=== PATIENT | male | born 1970 | race Caucasian/White ===

== ENCOUNTER → 2022-12-31 08:12 | Outpatient (CLI) | payer BC, SELFPAY ==
[2022-12-31 08:18] LABS: Microscopic, Urine URINE MICROSCOPIC (MICROSCOPIC)
[2022-12-31 08:38] LABS: Basophils # 0.1 K/mm3 (0-0.2); Basophils % 1.6 % (0.1-2.0); Eosinophils # 0.1 K/mm3 (0.0-0.4); Hematocrit 45.3 % (42.0-52.0); Hemoglobin 14.6 g/dL (14.1-18.0); Lymphocytes # 1.7 K/mm3 (0.7-4.5); Lymphocytes % 23.6 % (10-50); Mean Corpuscular HGB Conc 32.2 g/dL (31.8-35.4); Mean Corpuscular Hemoglobin 30.2 pg (27.0-31.2); Mean Corpuscular Volume 93.8 fl (80-94); Mean Platelet Volume 8.1 fl (7.4-10.4); Monocytes # 0.4 K/mm3 (0.1-1.0); Monocytes % 5.3 % (1.7-9.3); Neutrophils # 4.8 K/mm3 (1.8-7.8); Neutrophils % 67.4 % (37.0-80.0); Platelet Count 325 K/mm3 (142-424); Red Blood Count 4.83 M/mm3 (4.60-6.20); Red Cell Distribution Width 13.2 % (11.5-17.5); White Blood Count 7.1 K/mm3 (4.8-10.8)
[2022-12-31 08:53] LABS: Appearance,Urine CLEAR (Clear); Bilirubin,Urine Negative (Negative); Blood, Urine Negative (Negative); Color,Urine YELLOW (Yellow); Glucose,Urine (UA) Negative (Negative); Ketones,Urine Negative (Negative); Leukocyte Esterase,Urine Negative (Negative); Nitrate,Urine Negative (Negative); PH,Urine 5.5 (5.0-8.5); Protein,Urine Negative (Negative); Specific Gravity, Urine >= 1.030 (1.005-1.030); Urobilinogen,Urine 0.2 EU/dl (0.2)
[2022-12-31 09:36] LABS: Alanine Aminotransferase 37 U/L (12-78); Albumin Level 4.1 g/dl (3.5-5.0); Albumin/Globulin Ratio 1.7 (1.1-1.8); Alkaline Phosphatase 75 U/L (38-126); Anion Gap 9.2 mEq/L (5-15); Aspartate Amino Transferase 50 U/L (17-59); Bacteria,Urine Trace /lpf; Bilirubin,Total 0.7 mg/dl (0.2-1.3); Blood Urea Nitrogen 13 mg/dl (9-20); Calcium 8.9 mg/dl (8.4-10.2); Carbon Dioxide 28 mmol/L (22.0-30.0); Chloride 107 mmol/L (98-107); Chol/HDL Ratio 4.7 (1-3.5); Cholesterol 238 mg/dl (140-200); Estimated Glomerular Filt Rate 102 ml/min (>60); GFR (African American) 123 ML/MIN (>60); Globulin 2.4 g/dL (1.3-3.2); Glucose 121 mg/dl (74-100); HDL Cholesterol 51 mg/dl (40-60); Potassium 4.2 mmoL/L (3.5-5.1); Sodium 140 mmol/L (136-145); Squamous Epithelial Cell,Urine Occasional #/hpf (0-5); Total Protein,Serum 6.5 g/dl (6.3-8.2); Triglycerides 305 mg/dl (30-150); VLDL Cholesterol 61 mg/dL (0-40); WBC,Urine Occasional #/hpf (0-3)
[2022-12-31 09:47] LABS: Direct LDL Cholesterol 155.29 mg/dL (100-129)
[2022-12-31 10:07] LABS: Prostate Specific Ag Screen 0.4 ng/ml (0.0-4.0); Thyroid Stimulating Hormone 2.43 uIU/mL (0.465-4.68)
[2022-12-31 10:23] LABS: Hemoglobin A1C 6.9 % (4.0-6.0)
== END ==
PROVIDERS: PCP Nurse Practitioner Family; Visit Provider Nurse Practitioner Family
DX: Z00.00 Encounter for general adult medical examination without abnormal findings (principal); Z13.220 Encounter for screening for lipoid disorders; Z13.1 Encounter for screening for diabetes mellitus; R53.83 Other fatigue; Z12.5 Encounter for screening for malignant neoplasm of prostate
CPT/HCPCS: 36415; 80053; 80061; 81001; 83036; 84443; 85025; G0103

== ENCOUNTER 2023-01-06 08:12 | Day surgery (SDC) | payer BC, SELFPAY ==
[2023-01-04 14:25] VITALS: BMI 39.5
[2023-01-06] VITALS (7 sets, daily range): BP systolic 134–158; BP diastolic 78–96; PULSE 62–75; RESP 16–19; TEMP 36.4–37; O2SAT 92–99
[2023-01-06 08:55] LABS: POC Glucose,Bedside 89 (70-110)
--- NOTE | 2023-01-06 09:13 | EXP.ANES.CKL ---
[facility] Disclaimer: The information contained in this section may have been updated after the patient was seen, as this information can be updated by other users. Medical History Closed right forearm fracture Wrist fracture, right Surgical History No significant past surgical history Family History Father Diabetes Mother Stroke Social History Smoking Status: Never smoker alcohol intake: current substance use type: denies use current occupational status: employed Travel in the last 8 weeks: None household members: none housing: house lives independently: Yes marital status: single education level: high school service: No correction: No caffeine: Yes do you feel safe at home: Yes victim of physical abuse: No victim of emotional abuse: No victim of sexual abuse: No would you like helpful sources: No [facility] Anesthesia Checklist Patient Identification Patient Identification: Arm Band and Verbal (Name & ) Structural Data Admitted From: Home Planned Operative Procedure/s: Colonoscopy Consent for Planned Operative Procedure(s) Verified: Yes NPO Status Verified Time NPO: 00:00 Airway Assessment C-Spine Mobility Assessed: Yes TMJ Mobility Assessed: Yes Dentition: Good Dentition Neurological Assessment Level of Consciousness: Awake Hx Seizures: No Numbness or tingling in extremities: No Anesthesia Plan Anesthesia Risk discussed: Yes Anesthesia Plan: Verified ASA Class: II Anesthesia Type: MAC
--- NOTE | 2023-01-06 10:07 | P.PCN_ITS ---
Procedure: Date: 01/06/23 Patient Date of :: 1970 Procedure Performed:: Total colonoscopy to terminal ileum with polypectomy using biopsy and snare Indications:: Patient is a 52-year-old male referred for screening colonoscopy and umbilical hernia. He does have a moderate umbilical hernia. Plan was made for proceeding with initial screening colonoscopy prior to consideration of umbilical hernia repair. He is undergoing CT scan to better evaluate the best method for umbilical hernia repair. Performing Provider:: Giovani Greene MD Referring Provider:: Lupe Jj Sedation:: MAC sedation Procedure:: Patient history was obtained and appropriate physical examination was performed. Patient's medications and allergies were reviewed. Informed consent was obtained after explaining the benefits, alternatives, and risks of the procedure including, but not limited to, bleeding, perforation, missed lesions, and adverse reaction to anesthesia medications. Patient was transported to endoscopy procedure room. Patient was connected to monitoring devices. Throughout the procedure the patient's blood pressure, pulse, and oxygen saturations were monitored continuously. Patient identification and planned procedure were verified by the staff. Patient was positioned in lateral decubitus position. Digital anorectal exam was performed. Variable stiffness Olympus colonoscope was inserted and adv anced under direct visualization to the cecum. Adequacy of the colonic preparation was noted. The colonoscope was advanced a short distance into the terminal ileum. The colonoscope was then slowly withdrawn while carefully examining the color, texture, anatomy, and integrity of the mucosoa circumferentially. Within the rectum retroflexion was performed. Colonoscope was then withdrawn. Findings:: Colonoscope was inserted to the cecum with minimal difficulty due to some redundancy of the sigmoid colon. Colonic preparation was fair and adequate visualization was achieved with irrigation and suctioning. Terminal ileum appeared normal. In the ascending colon there was a tiny polyp removed with biopsy forceps. In the descending colon there is a small polyp removed with snare with residual polyp removed with biopsy forceps. In the sigmoid colon there were a couple small diminutive polyps removed with snare. In the rectosigmoid region there was a hyperplastic appearing polyp removed with biopsy forceps. In the rectum there is a small adenomatous polyp removed with cold snare. Retroflexion revealed no evidence of any pathologic internal hemorrhoids. Colonoscope was withdrawn. Impression: Fair preparation Small polyps as noted above (total 5 polyps removed) Recommendations:: Repeat colonoscopy pending pathology. Given initial screening colonoscopy, suboptimal prep, and polyps likely 3 years Complications:: None immediate Estimated blood obtained (mL): 2
== END 2023-01-06 11:00 | disposition home or self-care (01) ==
PROVIDERS: PCP Nurse Practitioner Family; Visit Provider Surgery
PROC: 0DJD8ZZ Inspection of Lower Intestinal Tract, Via Natural or Artificial Opening Endoscopic (ICD-10-PCS; CPT 45385; principal; 2023-01-06 09:30)
DX: Z12.11 Encounter for screening for malignant neoplasm of colon (principal); D12.2 Benign neoplasm of ascending colon; D12.4 Benign neoplasm of descending colon; D12.5 Benign neoplasm of sigmoid colon; Z79.899 Other long term (current) drug therapy; K42.9 Umbilical hernia without obstruction or gangrene
CPT/HCPCS: 45385; 45380; 82962; 88305; J2704

== ENCOUNTER → 2023-01-10 09:19 | Outpatient (CLI) | payer BC, SELFPAY ==
--- NOTE | 2023-01-10 09:19 | CT_ITS ---
FINAL REPORT TECHNIQUE: Thin section axial images were obtained through the abdomen after intravenous contrast. Reconstruction images were obtained from the axial data. Exam was performed using dose reduction techniques. CLINICAL HISTORY: umbilical hernia evaluation , patient states he has had this hernia for several years oral contrast finished at 7:30 am FINDINGS: There is a 5 mm nodule in the right lower lobe on image number 9. There is a is subcentimeter hypodense lesion in the right hepatic lobe that is too small to characterize. There is diffuse fatty infiltration of the liver. There are multiple gallstones in the gallbladder. The spleen, adrenal glands, and pancreas are unremarkable. There is no hydronephrosis or solid renal mass. Abdominal GI tract is without acute abnormality. There is no abdominal lymphadenopathy or ascites. There is a fat containing umbilical hernia. Abdominal wall defect measures 5 cm. Hernia sac measures 8.6 cm. The pelvic solid organs are unremarkable. The pelvic portions of the GI tract, including the appendix, are without acute abnormality. There is no pelvic lymphadenopathy or ascites. No acute osseous abnormalities identified. IMPRESSION: Fat containing umbilical hernia. Fatty infiltration of the liver. Gallstones. Right lower lobe pulmonary nodule. Recommend follow-up based on Fleischner criteria after risk stratification. Reviewed, Interpreted and Dictated by Tameka Oakes MD Transcribed by Umesh Roe Authenticated and [facility]
== END ==
PROVIDERS: PCP Nurse Practitioner Family; Visit Provider Surgery
DX: K42.9 Umbilical hernia without obstruction or gangrene (principal)
CPT/HCPCS: 74177; Q9967

== ENCOUNTER → 2023-02-07 20:16 | Outpatient (CLI) | payer BC, SELFPAY | PROVIDERS: PCP Family Medicine; Visit Provider Family Medicine | DX: G47.30 Sleep apnea, unspecified (principal); R40.0 Somnolence; R06.83 Snoring; E66.9 Obesity, unspecified; Z68.41 Body mass index [BMI] 40.0-44.9, adult | CPT/HCPCS: 95810 ==

== ENCOUNTER → 2023-03-01 12:56 | Outpatient (CLI) | payer BC, SELFPAY ==
--- NOTE | 2023-03-01 12:56 | CT_ITS ---
FINAL REPORT TECHNIQUE: Axial images were obtained through the chest without contrast. CLINICAL HISTORY: 5mm RLL pulm nodule seen on abd CT nonsmoker COMPARISON: CT abdomen and pelvis 01/10/2023 FINDINGS: There is no significant mediastinal mass or adenopathy. There are calcified bilateral hilar lymph nodes. Mild coronary artery calcifications are noted. The heart size is normal. There is no pericardial or pleural effusion. The nodule in the periphery of the right lower lobe is again identified. It is stable and measures 5 mm, best seen on image 153 series 3. Limited images of the upper abdomen demonstrate calcified granulomas in the spleen. IMPRESSION: Stable 5 mm right lower lobe nodule. One year follow-up recommended. Reviewed, Interpreted and Dictated by Sandro Noriega MD Transcribed by Windy Gómez Authenticated and [facility]
== END ==
PROVIDERS: PCP Nurse Practitioner Family; Visit Provider Nurse Practitioner Family
DX: R91.1 Solitary pulmonary nodule (principal)
CPT/HCPCS: 71250

== ENCOUNTER → 2023-03-07 09:28 | Outpatient (CLI) | payer BC, SELFPAY ==
--- NOTE | 2023-03-07 09:29 | ECG_ITS ---
APPROVED REPORT Exam: Resting ECG HR:68 bpm ECG Measurements Heart Rate 68 AXES CO 150 P 45 QRSd 82 QRS 75 QT 367 T 35 QTc 384 Conclusion SINUS RHYTHM NONSPECIFIC T-WAVE ABNORMALITY BORDERLINE ECG UNCONFIRMED REPORT Electronically signed by : Al Echevarria MD 03/07/2023 20:41:02
[2023-03-07 09:49] LABS: Microscopic, Urine URINE MICROSCOPIC (MICROSCOPIC)
[2023-03-07 10:22] LABS: Basophils # 0.1 K/mm3 (0-0.2); Basophils % 1.1 % (0.1-2.0); Eosinophils # 0.1 K/mm3 (0.0-0.4); Eosinophils % 1.1 % (0.1-12.0); Hematocrit 44.9 % (42.0-52.0); Hemoglobin 14.6 g/dL (14.1-18.0); Lymphocytes # 1.4 K/mm3 (0.7-4.5); Lymphocytes % 27.2 % (10-50); Mean Corpuscular HGB Conc 32.6 g/dL (31.8-35.4); Mean Corpuscular Hemoglobin 30.8 pg (27.0-31.2); Mean Corpuscular Volume 94.4 fl (80-94); Mean Platelet Volume 8.4 fl (7.4-10.4); Monocytes # 0.4 K/mm3 (0.1-1.0); Monocytes % 6.8 % (1.7-9.3); Neutrophils # 3.3 K/mm3 (1.8-7.8); Neutrophils % 63.8 % (37.0-80.0); Platelet Count 291 K/mm3 (142-424); Red Blood Count 4.75 M/mm3 (4.60-6.20); Red Cell Distribution Width 13.3 % (11.5-17.5); White Blood Count 5.1 K/mm3 (4.8-10.8)
[2023-03-07 10:51] LABS: Chloride 106 mmol/L (98-107); Potassium 4.3 mmoL/L (3.5-5.1); Sodium 140 mmol/L (136-145)
[2023-03-07 10:54] LABS: Blood Urea Nitrogen 16 mg/dl (9-20); Estimated Glomerular Filt Rate 88 ml/min (>60); GFR (African American) 107 ML/MIN (>60)
[2023-03-07 10:55] LABS: Anion Gap 11.3 mEq/L (5-15); Calcium 9.1 mg/dl (8.4-10.2); Carbon Dioxide 27 mmol/L (22.0-30.0); Glucose 96 mg/dl (74-100)
[2023-03-07 11:18] LABS: Appearance,Urine CLEAR (Clear); Bilirubin,Urine Negative (Negative); Blood, Urine TRACE-I (Negative); Color,Urine YELLOW (Yellow); Glucose,Urine (UA) Negative (Negative); Ketones,Urine Negative (Negative); Leukocyte Esterase,Urine Negative (Negative); Nitrate,Urine Negative (Negative); PH,Urine 5.5 (5.0-8.5); Protein,Urine Negative (Negative); Specific Gravity, Urine >= 1.030 (1.005-1.030); Urobilinogen,Urine 0.2 EU/dl (0.2)
[2023-03-07 11:23] LABS: Bacteria,Urine Trace /lpf; RBC,Urine Occasional #/hpf (0-3); Squamous Epithelial Cell,Urine Occasional #/hpf (0-5)
== END ==
PROVIDERS: PCP Nurse Practitioner Family; Visit Provider Surgery
DX: Z01.818 Encounter for other preprocedural examination (principal); K42.9 Umbilical hernia without obstruction or gangrene
CPT/HCPCS: 36415; 80048; 81001; 85025; 93005

== ENCOUNTER 2023-03-13 07:16 | Day surgery (SDC) | payer BC, SELFPAY ==
[2023-03-10 14:17] VITALS: BMI 47.1
[2023-03-13] VITALS (12 sets, daily range): BP systolic 118–159; BP diastolic 69–93; PULSE 69–89; RESP 12–18; TEMP 36.1–43; O2SAT 93–97
--- NOTE | 2023-03-13 08:24 | EXP.ANES.CKL ---
[facility] Disclaimer: The information contained in this section may have been updated after the patient was seen, as this information can be updated by other users. Medical History Closed right forearm fracture Encounter for screening for diabetes mellitus Establishing care with new doctor, encounter for Screening cholesterol level Wrist fracture, right Surgical History History of colonoscopy 01/06/23 Dr. Greene Family History Father Diabetes Mother Stroke Social History Smoking Status: Never smoker alcohol intake: current substance use type: denies use current occupational status: employed Travel in the last 8 weeks: None household members: none housing: house lives independently: Yes marital status: single education level: high school service: No [place] [facility]: No caffeine: Yes do you feel safe at home: Yes victim of physical abuse: No victim of emotional abuse: No victim of sexual abuse: No would you like helpful sources: No [facility] Anesthesia Checklist Patient Identification Patient Identification: Arm Band Structural Data Admitted From: Home Planned Operative Procedure/s: Laparoscopic Umbilical Hernia Repair Consent for Planned Operative Procedure(s) Verified: Yes Verified Documents: Surgical Consent and History and Physical NPO Status Verified Time NPO: 00:00 Additional verifications Anesthesia Reactions: No Hx Blood Transfusions: No Blood Transfusion Reaction: No Airway Assessment C-Spine Mobility Assessed: Yes TMJ Mobility Assessed: Yes Dentition: Good Dentition Neurological Assessment Level of Consciousness: Awake and Alert Anesthesia Plan Anesthesia Risk discussed: Yes Anesthesia Plan: Verified ASA Class: III Anesthesia Type: General
--- NOTE | 2023-03-13 11:13 | EXP.OP.NOTE ---
Date of procedure: 03/13/23 Pre-op Diagnosis:: Large complex umbilical hernia Post-op Diagnosis:: Same Procedure performed:: Laparoscopic ventral/umbilical hernia repair with placement of 11.[address] mesh. Surgeon:: Giovani Greene MD LUMBER PULLER:: Other Anesthesia: GETA Estimated blood loss (mL): 15 Clinical Note:: Patient presents for umbilical hernia repair.? I had seen him initially in the office on 12/29/2022 to evaluate an umbilical hernia as well as to plan for initial screening colonoscopy.? He has had a hernia present for several years somewhat above his umbilical area.? It has increased in size.? I had performed colonoscopy and he had a couple of tubular adenomas, submucosal leiomyoma, sessile serrated polyp in the rectum.? Repeat colonoscopy is recommended for [address] scan revealed fat-containing umbilical hernia, fatty infiltration of liver, gallstones.? Review of the images reveals hernia defect measuring approximately 4.55 cm.? Long discussion was held with the patient regarding the implications of surgery and nature, postoperative expectations, risks and benefits of the surgery. Patient did elect to proceed with hernia repair. Given the nature of the hernia I felt that likely laparoscopic repair would be the best option. I did explain to him that if this was repaired totally laparoscopically that this would likely be the best repair with less chance of recurrence but he may have still somewhat atypical appearing umbilical area. Operative findings:: He had a large complex hernia at his umbilical area. Defect measured 4 to 5 cm. Operative note:: Patient was taken to the operating room. He was given preoperative intravenous antibiotics. In the operating room he was placed in a supine position. General anesthesia was induced via endotracheal tube. [place] catheter was placed. Abdomen was prepped and draped in the standard surgical fashion. Through a 5 mm left subcostal incision optical trocar was inserted under laparoscopic visualization. CO2 pneumoperitoneum was achieved to 15 mmHg. Laparoscopic surveillance was carried out. He had herniated omentum in his mid abdomen. Additional trocars were placed with a 5 mm trocar in the left lower abdomen and a 12 mm trocar in the right subcostal area. Ultimately an additional 5 mm trocar was inserted in the right lower abdomen. With gentle traction the majority of the significant amount of herniated omentum was able to be reduced. There were some adhesions of the herniated omentum to the peritoneum of the hernia sac which were incised with electrocautery ultimately reducing the herniated omentum. There was a large amount of preperitoneal fatty tissues within the hernia and surrounding tissues and decision was made to excise the hernia sac and peritoneum surrounding the hernia to allow for placement of mesh. This was performed meticulously using JOSE ultrasonic harmonic valerie dissecting free the peritoneum of the hernia sac and preperitoneal fat surrounding the hernia to relatively normal fascia. Overall size of the defect measured approximately 4 to 5 cm. The hernia sac and preperitoneal fat was placed with and an endoscopic retrieval device and removed through the right upper quadrant trocar site which required some extension of the fascial incision for delivery. Attempt was made to tack the umbilical dermis inferiorly to the fascia using the OPTi fix absorbable fixation system. This was unsuccessful however. 11.[address] mesh was brought onto the field. It was inserted through the right upper quadrant trocar site. It was oriented intracorporeally. Within the umbilicus a tiny incision was made and the suture passer device was inserted. Insufflation tubing for the balloon positioning system was then brought through the umbilical incision and the balloon was inflated. Mesh was oriented intracorporeally with good overlap of the fascial edges. Mesh was
--- NOTE | 2023-03-13 11:26 | P.PNANES_ITS ---
[facility] Anesthesia Record Part I Anesthesia Record I Intake, IV Amount: 1,100 Estimated blood loss (mL): 15 Urine output (mL): 200 Blood Pressure: 128/76 SaO2: 94 Pulse Rate: 80 Respiratory Rate: 18 Temperature: 98.4 F Patient is:: Drowsy and Stable Stable to PACU at:: 11:18
[2023-03-13 12:17] LABS: POC Glucose,Bedside 101 (70-110)
[2023-03-13 14:04] LABS: Microscopic,Cath URINE MICROSCOPIC (MICROSCOPIC)
[2023-03-13 14:22] LABS: Appearance,Urine/Cath CLEAR (Clear); Bilirubin,Cath Negative (Negative); Blood, Urine/Cath Negative (Negative); Color,Urine/Cath YELLOW (Yellow); Glucose,Urine/Cath (UA) Negative (Negative); Ketones,Urine/Cath Negative (Negative); Leukocyte Esterase,Cath Negative (Negative); Nitrate,Cath Negative (Negative); PH,Urine/Cath 5.5 (5.0-8.5); Protein,Urine/Cath TRACE (Negative); Specific Gravity, Urine/Cath >= 1.030 (1.005-1.030); Urobilinogen,Cath 0.2 EU/dl (0.2)
[2023-03-13 15:17] LABS: CA Oxalate Crystals,Ur/Cath 2+ /lpf; RBC,Urine/Cath Occasional # /hpf (0-3)
[2023-03-14 07:13] VITALS: BP 149/69; PULSE 79; TEMP 36.2
--- NOTE | 2023-03-14 07:13 | EXP.ANES.II ---
[facility] Anesthesia Record Part II Anesthesia Record Part II Discharge Time: 11:58 Destination: Surgical Day Care (OP Surgery) PACU nurse assessment reviewed?: Yes Patient Condition:: Good Anesthesia Complications:: None Swallowing reflex intact?: Yes Cyanosis?: No Blood Pressure: 149/69 Pulse Rate: 79 Temperature: 97.2 F Mental Status: Alert & Oriented Pain level:: 0 Nausea and/or vomitting:: None Intake, IV Amount: 0
== END 2023-03-13 12:35 | disposition home or self-care (01) ==
PROVIDERS: PCP Nurse Practitioner Family; Visit Provider Surgery
PROC: 0WQF4ZZ Repair Abdominal Wall, Percutaneous Endoscopic Approach (ICD-10-PCS; CPT 49593; principal; 2023-03-13 08:45)
DX: K42.9 Umbilical hernia without obstruction or gangrene (principal); E11.9 Type 2 diabetes mellitus without complications
CPT/HCPCS: 49593; 81001; 82962; 96374; C1781; J2405

== ENCOUNTER → 2023-05-05 07:39 | Outpatient (CLI) | payer BC, SELFPAY ==
[2023-05-05 09:46] LABS: Chol/HDL Ratio 5.8 (1-3.5); Cholesterol 227 mg/dl (140-200); HDL Cholesterol 39 mg/dl (40-60); Triglycerides 218 mg/dl (30-150); VLDL Cholesterol 44 mg/dL (0-40)
[2023-05-05 09:57] LABS: Direct LDL Cholesterol 140.93 mg/dL (100-129)
[2023-05-05 10:07] LABS: Hemoglobin A1C 5.5 % (4.0-6.0)
== END ==
PROVIDERS: PCP Nurse Practitioner Family; Visit Provider Nurse Practitioner Family
DX: E78.5 Hyperlipidemia, unspecified (principal); E11.9 Type 2 diabetes mellitus without complications
CPT/HCPCS: 36415; 80061; 83036

== ENCOUNTER 2023-06-10 12:45 | Emergency (ER) | payer BC, SELFPAY ==
[2023-06-10 12:46] VITALS: BP 110/71; PULSE 67; RESP 18; TEMP 36.7; O2SAT 95; BMI 38.0
--- NOTE | 2023-06-10 13:05 | EXP.UTC ---
Discharge Plan Disposition Patient Disposition: Home, Self-Care Condition: Good Prescriptions Prescriptions: New mupirocin 2 % ointment 1 applic topical TID 7 Days Qty: 15 0RF amoxicillin-pot clavulanate 875-125 mg Tablet 1 tab PO Q12H Qty: 20 0RF No Action multivitamin [Daily Multi-Vitamin] Tablet 1 tab PO DAILY ferrous sulfate [FeroSul] 325 mg (65 mg iron) tablet 325 mg PO DAILY pseudoephedrine HCl [Nasal Decongestant (pseudoeph)] 30 mg tablet 30 mg PO DAILY PRN Rx Instructions: DNExceed 4 doses/24h Fish Oil 100-160-1,000 mg capsule 1 cap PO DAILY atorvastatin 40 mg tablet 40 mg PO HS Qty: 90 1RF Referrals Follow up/Referrals: Lupe Jj APRN [Primary Care Provider] - See instructions Activity Restrictions/Add. Instructions Additional Instructions/Restrictions: Keep the wounds clean and dry. Follow up with your regular doctor. Take the antibiotics as directed and apply the topical antibiotics as directed. Make sure you stay in contact with the health department regarding the health of the cat. Watch the puncture wounds for signs of worsening infection, such as worsening redness, drainage, swelling, etc. 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 He has several tooth puncture wound there now. His tetanus immunization is not up to date. Related Data Home Medications Medication Instructions Recorded Confirmed ferrous sulfate 325 mg (65 mg 325 mg PO DAILY Supplement 12/22/22 05/04/23 iron) tablet (FeroSul) multivitamin (Daily Multi-Vitamin 1 tab PO DAILY Supplement 12/22/22 05/04/23 tablet) omega 0-mdm-ssz-fish oil 100 1 cap PO DAILY Supplement 03/07/23 05/04/23 mg-160 mg-1,000 mg capsule (Fish Oil) pseudoephedrine HCl 30 mg tablet 30 mg PO DAILY PRN 05/04/23 05/04/23 (Nasal Decongestant (pseudoephedrine)) Previous Rx's Medication Instructions Recorded atorvastatin 40 mg tablet 40 mg PO HS #90 tabs 05/05/23 amoxicillin 875 mg-potassium 1 tab PO Q12H #20 tabs 06/10/23 clavulanate 125 mg tablet mupirocin 2 % topical ointment 1 applic topical TID 7 days #15 06/10/23 grams Allergies Allergy/AdvReac Type Severity Reaction Status Date / Time Sulfa (Sulfonamide Allergy Intermediate Verified 05/04/23 09:57 Antibiotics) mold Allergy Mild Uncoded 05/04/23 09:57 PFSH PFS Disclaimer: The information contained in this section may have been updated after the patient was seen, as this information can be updated by other users. Medical History Closed right forearm fracture Encounter for screening for diabetes mellitus Establishing care with new doctor, encounter for History of umbilical hernia Screening cholesterol level Wrist fracture, right Surgical History History of colonoscopy History of umbilical hernia repair Family History Father Diabetes Mother Stroke Social History Smoking Status: Never smoker alcohol intake: current substance use type: denies use current occupational status: employed Travel in the last 8 weeks: None household members: none housing: house lives independently: Yes marital status: single education level: high school
[2023-06-10 13:41] VITALS: BP 110/71; PULSE 67; RESP 18; TEMP 36.7; O2SAT 95
== END 2023-06-10 13:42 | disposition home or self-care (01) ==
PROVIDERS: Emergency Provider Nurse Practitioner Family; PCP Nurse Practitioner Family
DX: S61.451A Open bite of right hand, initial encounter (principal); W55.01XA Bitten by cat, initial encounter; Z23 Encounter for immunization
CPT/HCPCS: 90471; 90715; 96372; 99204; 99212; G0463

== ENCOUNTER → 2023-08-03 16:27 | Outpatient (CLI) | payer BC, SELFPAY ==
[2023-08-03 16:04] LABS: Cholesterol 141 mg/dl (140-200); Triglycerides 123 mg/dl (30-150); VLDL Cholesterol 25 mg/dL (0-40)
[2023-08-03 16:05] LABS: Chol/HDL Ratio 4.1 (1-3.5); HDL Cholesterol 34 mg/dl (40-60)
[2023-08-03 16:15] LABS: Direct LDL Cholesterol 78.38 mg/dL (100-129)
== END ==
PROVIDERS: PCP Nurse Practitioner Family; Visit Provider Nurse Practitioner Family
DX: E11.9 Type 2 diabetes mellitus without complications (principal); E78.5 Hyperlipidemia, unspecified
CPT/HCPCS: 80061; 83036

== ENCOUNTER 2024-02-01 12:44 | Outpatient (CLI) | payer BC, SELFPAY ==
[2024-02-01 12:45] LABS: Microscopic, Urine URINE MICROSCOPIC (MICROSCOPIC)
[2024-02-01 13:04] LABS: Basophils # 0.1 K/mm3 (0-0.2); Basophils % 0.8 % (0.1-2.0); Eosinophils # 0.1 K/mm3 (0.0-0.4); Eosinophils % 1.4 % (0.1-12.0); Hematocrit 46.3 % (42.0-52.0); Hemoglobin 14.8 g/dL (14.1-18.0); Lymphocytes # 1.7 K/mm3 (0.7-4.5); Lymphocytes % 25.8 % (10-50); Mean Corpuscular Hemoglobin 31.3 pg (27.0-31.2); Mean Corpuscular Volume 97.8 fl (80-94); Monocytes # 0.6 K/mm3 (0.1-1.0); Monocytes % 8.1 % (1.7-9.3); Neutrophils # 4.3 K/mm3 (1.8-7.8); Neutrophils % 63.9 % (37.0-80.0); Platelet Count 252 K/mm3 (142-424); Red Blood Count 4.73 M/mm3 (4.60-6.20); Red Cell Distribution Width 12.9 % (11.5-17.5); White Blood Count 6.7 K/mm3 (4.8-10.8)
[2024-02-01 13:19] LABS: Alanine Aminotransferase 25 U/L (12-78); Albumin Level 4.5 g/dl (3.5-5.0); Alkaline Phosphatase 104 U/L (38-126); Anion Gap 15.2 mEq/L (5-15); Aspartate Amino Transferase 26 U/L (17-59); Blood Urea Nitrogen 15 mg/dl (9-20); Calcium 9.3 mg/dl (8.4-10.2); Carbon Dioxide 27 mmol/L (22.0-30.0); Chloride 105 mmol/L (98-107); Chol/HDL Ratio 4.6 (1-3.5); Cholesterol 187 mg/dl (140-200); Estimated Glomerular Filt Rate 101 ml/min (>60); GFR (African American) 122 ML/MIN (>60); Globulin 2.2 g/dL (1.3-3.2); Glucose 91 mg/dl (74-100); HDL Cholesterol 41 mg/dl (40-60); Potassium 5.2 mmoL/L (3.5-5.1); Sodium 142 mmol/L (136-145); Total Protein,Serum 6.7 g/dl (6.3-8.2); Triglycerides 170 mg/dl (30-150); VLDL Cholesterol 34 mg/dL (0-40)
[2024-02-01 13:27] LABS: Hemoglobin A1C 6.2 % (4.0-6.0)
[2024-02-01 13:32] LABS: Direct LDL Cholesterol 106.23 mg/dL (100-129)
[2024-02-01 13:36] LABS: Free T4 (Free Thyroxine) 0.78 ng/dl (0.78-2.19)
[2024-02-01 13:38] LABS: 25-OH Vitamin D, Total 38.5 ng/mL (30-100)
[2024-02-01 13:43] LABS: Creatinine,Urine Random 136 mg/dL (Not Estab.); Microalbumin < 6.000 mg/L (0-16.7)
[2024-02-01 13:45] LABS: Appearance,Urine CLEAR (Clear); Bilirubin,Urine Negative (Negative); Blood, Urine Negative (Negative); Color,Urine YELLOW (Yellow); Glucose,Urine (UA) Negative (Negative); Ketones,Urine Negative (Negative); Leukocyte Esterase,Urine Negative (Negative); Nitrate,Urine Negative (Negative); Protein,Urine Negative (Negative); Specific Gravity, Urine 1.025 (1.005-1.030); Urobilinogen,Urine 0.2 EU/dl (0.2)
[2024-02-01 13:47] LABS: Bacteria,Urine Trace /lpf; Mucus,Urine Trace /lpf; WBC,Urine Occasional #/hpf (0-3)
[2024-02-01 13:51] LABS: Prostate Specific Ag Screen 0.7 ng/ml (0.0-4.0)
[2024-02-01 14:10] LABS: Vitamin B12 688 pg/mL (239-931)
== END 2024-02-01 23:59 ==
LOC: LAB.DROPOF 12:44
PROVIDERS: PCP Nurse Practitioner Family; Visit Provider Nurse Practitioner Family
DX: R53.83 Other fatigue (principal); E11.9 Type 2 diabetes mellitus without complications; E78.5 Hyperlipidemia, unspecified; G47.33 Obstructive sleep apnea (adult) (pediatric); Z12.5 Encounter for screening for malignant neoplasm of prostate; Z79.899 Other long term (current) drug therapy; E66.9 Obesity, unspecified; Z68.41 Body mass index [BMI] 40.0-44.9, adult
CPT/HCPCS: 80053; 80061; 81001; 82043; 82306; 82570; 82607; 83036; 84439; 84443; 85025; 87086; G0103

== ENCOUNTER 2024-03-01 08:19 | Outpatient (CLI) | payer BC, SELFPAY ==
--- NOTE | 2024-03-01 08:20 | CT_ITS ---
FINAL REPORT TECHNIQUE: Axial CT images were performed from the lung apices through the upper abdomen. Coronal and sagittal reformats were submitted. This study was performed with techniques to keep radiation doses as low as reasonably achievable (ALARA). Individualized dose reduction techniques using automated exposure control or adjustment of mA and/or kV according to the patient's size were employed. CLINICAL HISTORY: lung nodule COMPARISON: 03/01/2023 FINDINGS: There is no axillary adenopathy. There is no hilar or mediastinal mass or adenopathy. Heart size is normal. Mild to moderate coronary artery calcifications are present. There is mild atelectasis present bilaterally. There is a 5 mm right lower lobe nodule present, not as well-visualized as on the prior CT examination of 1 year ago, but is apparent and stable in size, best seen on image #56. No new masses or nodules are identified. There is no pericardial or pleural effusion. Limited images of the upper abdomen are unremarkable. IMPRESSION: No acute process. 5 mm right lower lobe nodule, stable since the prior CT examination of 2022. Consider follow-up CT of the chest in 12 months to ensure stability. Reviewed, Interpreted and Dictated by Giovani Jimenez III, MD Transcribed by Cele Sweeney Authenticated and [facility]
--- NOTE | 2024-03-01 08:20 | CT_ITS ---
FINAL REPORT CLINICAL HISTORY: RLL nodule, gallstones, f/u CT COMPARISON: 01/10/2023 FINDINGS: CT OF THE ABDOMEN AND PELVIS WITH CONTRAST Axial CT images of the abdomen and pelvis were obtained after the administration of oral and iv contrast. Coronal and sagittal reformatted images were also obtained and reviewed.This study was performed with techniques to keep radiation doses as low as reasonably achievable (ALARA). Individualized dose reduction techniques using automated exposure control or adjustment of mA and/or kV according to the patient's size were employed. Abdomen: The lung bases are clear. The heart is normal in size. There is a 7 mm low-attenuation mass in the posterior right hepatic lobe, also noted on the prior CT of 2022, and stable since that time. This may represent a hepatic cyst. There are multiple stones present in the gallbladder. The spleen is unremarkable. No adrenal mass is present. The pancreas has an unremarkable appearance. The kidneys are normal, without evidence of mass or hydronephrosis. The aorta is normal in caliber. There is no free fluid or adenopathy. No mass or abnormal fluid collection is seen. Pelvis: The appendix is normal in appearance. The urinary bladder is unremarkable. No inflammatory process is seen. There is no evidence of mass or adenopathy. There is no evidence of bowel obstruction. There is presumed interval umbilical hernia repair noted in the anterior abdominal wall. IMPRESSION: No evidence of acute intra-abdominal process. 7 mm low-attenuation in the posterior right hepatic lobe, stable since the prior CT. Multiple stones remain present in the gallbladder. Reviewed, Interpreted and Dictated by Giovani Jimenez III, MD Transcribed by Cele Sweeney Authenticated and . [facility]
[2024-03-01] MEDS: IOPAMIDOL-370 (76%);100ML BOTTLE 75 ML IV (08:52)
== END 2024-03-01 23:59 ==
LOC: RAD 08:20
PROVIDERS: PCP Nurse Practitioner Family; Visit Provider Nurse Practitioner Family
DX: R91.1 Solitary pulmonary nodule (principal); K80.20 Calculus of gallbladder without cholecystitis without obstruction; K42.9 Umbilical hernia without obstruction or gangrene
CPT/HCPCS: 71250; 74177; Q9967

== ENCOUNTER 2024-08-15 14:11 | Outpatient (CLI) | payer BC, SELFPAY ==
[2024-08-15 13:35] LABS: Microscopic, Urine URINE MICROSCOPIC (MICROSCOPIC)
[2024-08-15 13:50] LABS: Basophils # 0.1 K/mm3 (0-0.2); Basophils % 1.5 % (0.1-2.0); Eosinophils # 0.1 K/mm3 (0.0-0.4); Eosinophils % 1.6 % (0.1-12.0); Hematocrit 42.1 % (42.0-52.0); Hemoglobin 13.3 g/dL (14.1-18.0); Lymphocytes # 1.2 K/mm3 (0.7-4.5); Lymphocytes % 21.6 % (10-50); Mean Corpuscular HGB Conc 31.7 g/dL (31.8-35.4); Mean Corpuscular Hemoglobin 31.1 pg (27.0-31.2); Mean Corpuscular Volume 98.2 fl (80-94); Monocytes # 0.4 K/mm3 (0.1-1.0); Monocytes % 6.9 % (1.7-9.3); Neutrophils # 3.7 K/mm3 (1.8-7.8); Neutrophils % 68.4 % (37.0-80.0); Platelet Count 330 K/mm3 (142-424); Red Blood Count 4.28 M/mm3 (4.60-6.20); Red Cell Distribution Width 13.3 % (11.5-17.5); White Blood Count 5.4 K/mm3 (4.8-10.8)
[2024-08-15 14:15] LABS: Appearance,Urine CLEAR (Clear); Bilirubin,Urine Negative (Negative); Blood, Urine Negative (Negative); Color,Urine YELLOW (Yellow); Glucose,Urine (UA) Negative (Negative); Ketones,Urine Negative (Negative); Leukocyte Esterase,Urine Negative (Negative); Nitrate,Urine Negative (Negative); Protein,Urine Negative (Negative); Specific Gravity, Urine 1.025 (1.005-1.030); Urobilinogen,Urine 0.2 EU/dl (0.2)
[2024-08-15 14:34] LABS: WBC,Urine Occasional #/hpf (0-3)
[2024-08-15 14:35] LABS: Bacteria,Urine 2+ /lpf; Squamous Epithelial Cell,Urine Occasional #/hpf (0-5)
[2024-08-15 16:21] LABS: HIV (1&2) Antibody Rapid NONREACTIVE (NONREACTIVE)
[2024-08-15 20:44] LABS: Albumin Level 4.3 g/dl (3.5-5.0); Chloride 109 mmol/L (98-107); Potassium 5.1 mmoL/L (3.5-5.1); Sodium 141 mmol/L (136-145)
[2024-08-15 20:47] LABS: Alanine Aminotransferase 20 U/L (12-78); Alkaline Phosphatase 103 U/L (38-126); Anion Gap 10.1 mEq/L (5-15); Aspartate Amino Transferase 21 U/L (17-59); Bilirubin,Total 0.8 mg/dl (0.2-1.3); Blood Urea Nitrogen 15 mg/dl (9-20); Carbon Dioxide 27 mmol/L (22.0-30.0); Cholesterol 171 mg/dl (140-200); Estimated Glomerular Filt Rate 101 ml/min (>60); GFR (African American) 122 ML/MIN (>60); Globulin 2.2 g/dL (1.3-3.2); Total Protein,Serum 6.5 g/dl (6.3-8.2); Triglycerides 189 mg/dl (30-150); VLDL Cholesterol 38 mg/dL (0-40)
[2024-08-15 20:48] LABS: Calcium 9.4 mg/dl (8.4-10.2); Chol/HDL Ratio 4.4 (1-3.5); Glucose 93 mg/dl (74-100); HDL Cholesterol 39 mg/dl (40-60)
[2024-08-15 20:59] LABS: Direct LDL Cholesterol 93.71 mg/dL (100-129)
[2024-08-17 07:12] LABS: HCV Ab Non Reactive (Non Reactive)
== END 2024-08-15 23:59 | disposition home or self-care (01) ==
LOC: LAB.DROPOF 14:12
PROVIDERS: PCP Nurse Practitioner Family; Visit Provider Nurse Practitioner Family
DX: Z11.59 Encounter for screening for other viral diseases (principal); E11.9 Type 2 diabetes mellitus without complications; E78.5 Hyperlipidemia, unspecified; R39.9 Unspecified symptoms and signs involving the genitourinary system; Z11.4 Encounter for screening for human immunodeficiency virus [HIV]; R53.83 Other fatigue
CPT/HCPCS: 80053; 80061; 81001; 83036; 85025; 86803; 87086; 87389

== ENCOUNTER 2024-12-05 11:56 | Outpatient (CLI) | payer BC, SELFPAY ==
[2024-12-05 11:37] LABS: Microscopic, Urine URINE MICROSCOPIC (MICROSCOPIC)
[2024-12-05 11:46] LABS: Basophils # 0.1 K/mm3 (0-0.2); Basophils % 1.2 % (0.1-2.0); Eosinophils # 0.1 K/mm3 (0.0-0.4); Eosinophils % 1.5 % (0.1-12.0); Hematocrit 42.4 % (42.0-52.0); Hemoglobin 13.7 g/dL (14.1-18.0); Lymphocytes # 1.3 K/mm3 (0.7-4.5); Lymphocytes % 21.6 % (10-50); Mean Corpuscular HGB Conc 32.3 g/dL (31.8-35.4); Mean Corpuscular Hemoglobin 30.2 pg (27.0-31.2); Mean Corpuscular Volume 93.6 fl (80-94); Mean Platelet Volume 10.8 fl (7.4-10.4); Monocytes # 0.6 K/mm3 (0.1-1.0); Neutrophils # 3.9 K/mm3 (1.8-7.8); Neutrophils % 65.4 % (37.0-80.0); Platelet Count 287 K/mm3 (142-424); Red Blood Count 4.53 M/mm3 (4.60-6.20); Red Cell Distribution Width 13.2 % (11.5-17.5)
[2024-12-05 11:52] LABS: Appearance,Urine CLEAR (Clear); Blood, Urine Negative (Negative); Color,Urine YELLOW (Yellow); Glucose,Urine (UA) Negative (Negative); Ketones,Urine Negative (Negative); Leukocyte Esterase,Urine Negative (Negative); Nitrate,Urine Negative (Negative); Protein,Urine Negative (Negative); Specific Gravity, Urine >= 1.030 (1.005-1.030); Urobilinogen,Urine 0.2 EU/dl (0.2)
[2024-12-05 12:00] LABS: Bilirubin,Urine 1+ (Negative)
[2024-12-05 12:07] LABS: Creatinine,Urine Random 295 mg/dL (Not Estab.)
[2024-12-05 12:09] LABS: Microalbumin/Creatinine Ratio 5.8
[2024-12-05 12:10] LABS: Chloride 106 mmol/L (98-107)
[2024-12-05 12:11] LABS: Potassium 4.4 mmoL/L (3.5-5.1); Sodium 142 mmol/L (136-145)
[2024-12-05 12:13] LABS: Anion Gap 15.4 mEq/L (5-15); Blood Urea Nitrogen 16 mg/dl (9-20); Carbon Dioxide 25 mmol/L (22.0-30.0); Estimated Glomerular Filt Rate 118 ml/min (>60); GFR (African American) 142 ML/MIN (>60); Iron 77 ug/dL (49-181)
[2024-12-05 12:14] LABS: Calcium 9.3 mg/dl (8.4-10.2); Chol/HDL Ratio 4.7 (1-3.5); Cholesterol 163 mg/dl (140-200); Glucose 95 mg/dl (74-100); HDL Cholesterol 35 mg/dl (40-60); Triglycerides 183 mg/dl (30-150); VLDL Cholesterol 37 mg/dL (0-40)
[2024-12-05 12:25] LABS: Direct LDL Cholesterol 96.63 mg/dL (100-129)
[2024-12-05 12:27] LABS: 25-OH Vitamin D, Total 35.9 ng/mL (30-100); Free T4 (Free Thyroxine) 0.92 ng/dl (0.78-2.19)
[2024-12-05 12:28] LABS: WBC,Urine Occasional #/hpf (0-3)
[2024-12-05 12:29] LABS: Bacteria,Urine 4+ /lpf; RBC,Urine Occasional #/hpf (0-3); Sperm,Urine OCC /lpf; Squamous Epithelial Cell,Urine Occasional #/hpf (0-5); Total Iron Binding Capacity 379 ug/dL (261-462)
[2024-12-05 12:49] LABS: Ferritin 47.5 ng/ml (17.9-464)
[2024-12-05 14:30] LABS: Hemoglobin A1C 5.9 % (4.0-6.0)
== END 2024-12-05 23:59 | disposition home or self-care (01) ==
LOC: LAB.DROPOF 11:56
PROVIDERS: PCP Nurse Practitioner Family; Visit Provider Nurse Practitioner Family
DX: G47.00 Insomnia, unspecified (principal); E78.5 Hyperlipidemia, unspecified; E11.9 Type 2 diabetes mellitus without complications; R53.83 Other fatigue; Z00.00 Encounter for general adult medical examination without abnormal findings; Z68.41 Body mass index [BMI] 40.0-44.9, adult; Z12.5 Encounter for screening for malignant neoplasm of prostate; R91.1 Solitary pulmonary nodule; G47.33 Obstructive sleep apnea (adult) (pediatric); I10 Essential (primary) hypertension
CPT/HCPCS: 80048; 80061; 81001; 82043; 82306; 82570; 82728; 83036; 83540; 83550; 84439; 84443; 85025; 87086

== ENCOUNTER 2025-06-12 09:18 | Outpatient (CLI) | payer BC, SELFPAY ==
[2025-06-12 13:29] LABS: Hematocrit 44.1 % (42.0-52.0); Hemoglobin 14.0 g/dL (14.1-18.0); Immature Granulocytes % 0.2 %; Mean Corpuscular HGB Conc 31.7 g/dL (31.8-35.4); Mean Corpuscular Hemoglobin 29.9 pg (27.0-31.2); Mean Corpuscular Volume 94.0 fl (80-94); Nucleated Red Blood Cells % 0 %; Platelet Count 261 K/mm3 (142-424); Red Blood Count 4.69 M/mm3 (4.60-6.20); Red Cell Distribution Width-SD 44.2 fL; White Blood Count 5.8 K/mm3 (4.8-10.8)
[2025-06-12 14:07] LABS: Hemoglobin A1C 7.2 % (4.0-6.0)
[2025-06-12 15:26] LABS: Chloride 105 mmol/L (98-107); Potassium 4.8 mmoL/L (3.5-5.1); Sodium 140 mmol/L (136-145)
[2025-06-12 15:28] LABS: Blood Urea Nitrogen 15 mg/dl (9-20); Creatinine,Serum 0.70 mg/dl (0.66-1.25); Estimated Glomerular Filt Rate 117 ml/min (>60); GFR (African American) 142 ML/MIN (>60)
[2025-06-12 15:29] LABS: Anion Gap 14.8 mEq/L (5-15); Calcium 9.3 mg/dl (8.4-10.2); Carbon Dioxide 25 mmol/L (22.0-30.0); Cholesterol 164 mg/dl (140-200); Glucose 89 mg/dl (74-100); HDL Cholesterol 39 mg/dl (40-60); Iron 99 ug/dL (49-181); Triglycerides 207 mg/dl (30-150)
[2025-06-12 15:40] LABS: Total Iron Binding Capacity 358 ug/dL (261-462)
[2025-06-12 16:05] LABS: Ferritin 48.0 ng/ml (17.9-464)
== END 2025-06-12 23:59 | disposition home or self-care (01) ==
LOC: LAB.DROPOF 06-16 09:20
PROVIDERS: PCP Nurse Practitioner Family; Visit Provider Nurse Practitioner Family
DX: E11.9 Type 2 diabetes mellitus without complications (principal); E78.5 Hyperlipidemia, unspecified; R91.1 Solitary pulmonary nodule; I10 Essential (primary) hypertension; Z68.41 Body mass index [BMI] 40.0-44.9, adult; R53.83 Other fatigue; D64.9 Anemia, unspecified
CPT/HCPCS: 80048; 80061; 82043; 82570; 82728; 83036; 83540; 83550; 85025

== ENCOUNTER 2025-06-17 07:15 | Outpatient (CLI) | payer BC, SELFPAY ==
--- NOTE | 2025-06-17 07:30 | CT_ITS ---
FINAL REPORT TECHNIQUE: Axial imaging of the chest was obtained without contrast. Reformatted images were also obtained and reviewed.This study was performed with techniques to keep radiation doses as low as reasonably achievable, (ALARA). Individualized dose reduction technique using automated exposure control or adjustment of mA and/or kV according to the patient's size were employed. CLINICAL HISTORY: pulmonary nodules f/u COMPARISON: 03/01/2023,03/01/2024 FINDINGS: There is no axillary adenopathy. There is no hilar or mediastinal mass or adenopathy. Heart size is normal. There is no pericardial or pleural effusion. There is an oval nodule in the right lower lobe on image 47 of series 2 measuring up to 5 mm. There is also a rounded, subpleural right lower lobe nodule measuring 3 mm on image 58 of series 2. Nodules are stable from 2022. Limited imaging of the upper abdomen demonstrates fatty infiltration of the liver. There are multiple gallstones present. IMPRESSION: Stable pulmonary nodules from 2022 consistent with benign nodules. No imaging follow-up required. Cholelithiasis Reviewed, Interpreted and Dictated by Jenny Falk MD Transcribed by Elena Stiles Authenticated and [facility]
== END 2025-06-17 23:59 | disposition home or self-care (01) ==
PROVIDERS: PCP Nurse Practitioner Family; Visit Provider Nurse Practitioner Family
DX: R91.1 Solitary pulmonary nodule (principal); E11.9 Type 2 diabetes mellitus without complications; E78.5 Hyperlipidemia, unspecified; Z68.41 Body mass index [BMI] 40.0-44.9, adult; R53.83 Other fatigue; D64.9 Anemia, unspecified
CPT/HCPCS: 71250

== ENCOUNTER 2025-09-25 08:59 | Outpatient (CLI) | payer BC, SELFPAY ==
[2025-09-25 17:41] LABS: Hemoglobin A1C 6.0 % (4.0-6.0)
[2025-09-25 19:19] LABS: Chloride 102 mmol/L (98-107); Potassium 4.4 mmoL/L (3.5-5.1); Sodium 136 mmol/L (136-145)
[2025-09-25 19:22] LABS: Anion Gap 10.4 mEq/L (5-15); Blood Urea Nitrogen 11 mg/dl (9-20); Carbon Dioxide 28 mmol/L (22.0-30.0); Creatinine,Serum 0.80 mg/dl (0.66-1.25); Estimated Glomerular Filt Rate 100 ml/min (>60); GFR (African American) 121 ML/MIN (>60)
[2025-09-25 19:45] LABS: Calcium 8.9 mg/dl (8.4-10.2); Cholesterol 125 mg/dl (140-200); Glucose 81 mg/dl (74-100); HDL Cholesterol 34 mg/dl (40-60); Triglycerides 103 mg/dl (30-150)
== END 2025-09-25 23:59 ==
LOC: LAB.DROPOF 09-29 08:59
PROVIDERS: PCP Nurse Practitioner Family; Visit Provider Nurse Practitioner Family
DX: E78.5 Hyperlipidemia, unspecified (principal); I10 Essential (primary) hypertension; E11.9 Type 2 diabetes mellitus without complications; Z12.5 Encounter for screening for malignant neoplasm of prostate
CPT/HCPCS: 80048; 80061; 83036; G0103